=== PATIENT | female | born 1990 | race Two or more races ===

== ENCOUNTER 2017-09-27 17:39 | Emergency (ER) | payer SELFPAY ==
[~2017-09-27] VITALS: Ht 160 cm; Wt 90.8 kg
[2017-09-27 18:44] LABS: HEMATOCRIT 36.8 % (36.0-46.0); MCH 26.7 PG (29.0-34.0); MCHC 32.6 G/DL (30.0-36.0); MCV 81.8 FL (83-99); RBC DIS.WIDTH-CV 13.6 % (11.8-14.6); RBC DIS.WIDTH-SD 40.4 % (39-53); WHITE BLOOD COUNT 6.5 K/uL (4.1-10.2)
[2017-09-27 18:59] LABS: ALBUMIN 3.9 g/dL (3.2-4.8); CHLORIDE 106 mEq/L (99-109); POTASSIUM 3.9 mEq/L (3.7-5.4); SODIUM 140 mEq/L (136-147)
[2017-09-27 19:00] LABS: GLUCOSE 81 mg/dL (70-99); TOTAL PROTEIN 6.9 g/dL (6.4-8.3)
[2017-09-27 19:02] LABS: TOTAL BILIRUBIN 0.2 mg/dL (0.0-1.0)
[2017-09-27 19:03] LABS: ALKALINE PHOSPHATASE 90 IU/L (3-129)
[2017-09-27 19:04] LABS: CREATININE 0.7 mg/dL (0.6-1.3); GFR ESTIMATE (CALCULATED) > 59 mL/min/
[2017-09-27 19:05] LABS: AST (GOT) 28 IU/L (2-34); DIRECT BILIRUBIN 0.1 mg/dL (0.0-0.3); UREA NITROGEN (BUN) 11 mg/dL (9-23)
[2017-09-27 19:06] LABS: ALT (GPT) 18 IU/L (3-49); QUANTITATIVE HCG < 4.0 MIU/ML
[2017-09-27 19:07] LABS: LIPASE 45 U/L (1.0-51.0)
[2017-09-27 19:34] LABS: PLAT.SUFFICIENCY ADEQUATE; PLATELET COUNT 274 K/uL (156-360)
[2017-09-27 19:48] LABS: THYROTROPIN (TSH) 1.2 MIU/L (0.4-5.5)
[2017-09-27 20:06] VITALS: BP 126/85
== END 2017-09-27 20:07 | disposition home or self-care (01) ==
LOC: EME 17:39
PROVIDERS: Physician Assistant
DX: R00.2 Palpitations (principal); R07.9 Chest pain, unspecified
CPT/HCPCS: 71046; 80048; 80076; 83690; 84443; 84702; 85027; 93005; 99281; 99285